=== PATIENT | female | born 1975 | race Caucasian/White ===

== ENCOUNTER → 2018-06-06 | Day surgery (SDC) | payer OTHER ==
--- NOTE | 2018-06-06 14:38 | OP ---
DATE OF OPERATION: 06/06/2018 PREOPERATIVE DIAGNOSIS: Abnormal left mammography. POSTOPERATIVE DIAGNOSIS: Abnormal left mammography. PROCEDURE: Left breast stereotactic needle biopsy with clip. SURGEON: Cheyanne Kaye MD ANESTHESIA: Local. COMPLICATIONS: None. This is a sterile procedure. INDICATIONS FOR PROCEDURE: Patient presented with a routine screening mammogram that noted calcifications in the outer left breast. My recommendation was for needle biopsy. These were increasing when compared to previous year. The procedure of a stereotactic needle biopsy with clip was discussed and all the questions answered. PROCEDURE IN DETAIL: Patient brought to [facility] in [place], laid prone on the Lor[place] table. Using the cranial approach, the calcifications in the outer left breast were identified. A sterile prep obtained. A target was chosen. There was a positive stroke margin. Using Betadine and 1% lidocaine, a 9-gauge Suros device was used to take several cores from this area. The specimens showed cores with calcifications. A clip was deployed in the area. Hemostasis assured with direct pressure. The specimen was handled in usual calcification protocol. Once hemostasis was assured, the incision was closed with Steri-Strips. She tolerated the procedure well and [facility]. CHEYANNE KAYE M.D. [id number]
--- NOTE | 2018-06-08 17:55 | PATH ---
Surgical Pathology Report Patient Name: ADRIEL CABRERA [facility]. Rec. #: [id number] /Age/Gender: 1975 (Age: 43) / F Account: [id number] Location: [facility] Taken: 06/06/2018 Received: 06/06/2018 Reported: 06/08/2018 Physicians: Cheyanne Silvestre M.D. Specimen(s) Received A: LEFT BREAST SPECIMEN -WITH CALCIFICATIONS B: LEFT BREAST SPECIMEN-WITHOUT CALCIFICATIONS Clinical History Nonpalpable lesion Mammographic findings: Microcalcification, suspicious Final Diagnosis A. LEFT BREAST SPECIMEN WITH CALCIFICATIONS, STEREOTACTIC BIOPSY: BENIGN BREAST TISSUE WITH PROLIFERATIVE FIBROCYSTIC CHANGES SHOWING USUAL DUCTAL HYPERPLASIA (UDH), MICROCYSTS, COLUMNAR CELL CHANGE, PAPILLARY APOCRINE METAPLASIA, STROMAL FIBROSIS, AND MICROCALCIFICATIONS. B. LEFT BREAST SPECIMEN WITHOUT CALCIFICATIONS, STEREOTACTIC BIOPSY: BENIGN BREAST TISSUE WITH PROLIFERATIVE FIBROCYSTIC CHANGES SHOWING USUAL DUCTAL HYPERPLASIA (UDH), MICROCYSTS, COLUMNAR CELL CHANGE, CYSTIC APOCRINE METAPLASIA , FOCAL HISTIOCYTIC REACTION , STROMAL FIBROSIS, AND MICROCALCIFICATIONS. Electronically Signed Melvi Raza M.D. Gross Description A. Received in formalin labeled "left breast with calcifications," are 9 neville-yellow, cylindrical portions of fibroadipose tissue ranging from 0.3-2.0 cm in length and averaging 0.2 cm in diameter. The specimens are submitted in toto in 2 cassettes. B. Received in formalin labeled "left breast without calcifications," are 11 neville-yellow, cylindrical portion of the fibroadipose tissue ranging from 0.3-2.2 cm in length and averaging 0.2 cm in diameter. The specimens are submitted in toto in 2 cassettes. Time to formalin fixation: 5 minutes Total formalin fixation time: Approximately 6 hours. /06/07/2018 saudi06/07/2018
== END | disposition home or self-care (01) ==
LOC: FMAMMOTONE 10:34
PROVIDERS: ATTEND Surgery
PROC: 0HBU3ZX Excision of Left Breast, Percutaneous Approach, Diagnostic (ICD-10-PCS; principal; 2018-06-06)
DX: N60.12 Diffuse cystic mastopathy of left breast (principal); N60.32 Fibrosclerosis of left breast; N60.82 Other benign mammary dysplasias of left breast; N64.89 Other specified disorders of breast; R92.8 Other abnormal and inconclusive findings on diagnostic imaging of breast
CPT/HCPCS: 19081; 87899; 88305-TC; A4648